=== PATIENT | female | born 1960 ===

== ENCOUNTER 2018-12-19 12:17 | Outpatient (CLI) | payer OTHER ==
[~2018-12-19] VITALS: Ht 160 cm; Wt 56.7 kg
== END 2018-12-19 12:35 | disposition home or self-care (01) ==
LOC: OFIC 805 12:17
DX: J01.80 Other acute sinusitis (principal); H66.91 Otitis media, unspecified, right ear; R09.81 Nasal congestion

== ENCOUNTER 2018-12-26 15:55 | Outpatient (CLI) | payer OTHER ==
[~2018-12-26] VITALS: Ht 152.4 cm; Wt 55.8 kg
== END 2018-12-26 16:10 | disposition home or self-care (01) ==
LOC: OFIC 805 15:55
DX: J32.8 Other chronic sinusitis (principal)

== ENCOUNTER 2019-01-06 10:42 | Outpatient (CLI) | payer OTHER | END 2019-01-06 10:55 | disposition home or self-care (01) | LOC: SONOGRAMA 10:42 | DX: R10.11 Right upper quadrant pain (principal) ==

== ENCOUNTER 2019-02-06 14:03 | Outpatient (CLI) | payer OTHER ==
[~2019-02-06] VITALS: Ht 152.4 cm; Wt 55.8 kg
== END 2019-02-06 14:15 | disposition home or self-care (01) ==
LOC: OFIC 805 14:03
DX: J32.8 Other chronic sinusitis (principal); H66.91 Otitis media, unspecified, right ear; R09.81 Nasal congestion

== ENCOUNTER 2019-02-14 13:42 | Outpatient (CLI) | payer OTHER | END 2019-02-14 13:48 | disposition home or self-care (01) | LOC: TOM 13:42 | DX: J32.8 Other chronic sinusitis (principal) ==